=== PATIENT | male | born 2000 | race African-American/Black ===

== ENCOUNTER → 2021-08-03 14:28 | Outpatient (CLI) | payer OTHER, SELFPAY ==
--- NOTE | 2021-08-03 14:40 | RAD_ITS ---
STUDY: X-RAY - PELVIS AND BILATERAL HIPS REASON FOR EXAM: Male, 21 years old. HIP PAIN TECHNIQUE: AP view of the pelvis.? 2 views of the right hip, and 2 views of the left hip were obtained. COMPARISON: None. FINDINGS: There is a non-specific bowel gas pattern. Normal visualized soft tissue structures. Normal bilateral iliac wings, sacroiliac joints and visualized sacrum. Normal bilateral superior and inferior pubic rami. Normal pubic symphysis. Normal bilateral ischial tuberosities. Normal visualized right femoral head. Normal right acetabulum. Normal right hip joint. Normal visualized left femoral head. Normal left acetabulum. Normal left hip joint. RAD/Hips B/L min 2 views w/ Pelvis IMPRESSION: Normal x-ray examination of the pelvis and bilateral hips. Electronically Signed: Margarito Lundy MD at 15:43 EDT , Service support ,
== END ==
LOC: RAD 14:35
PROVIDERS: Referring Provider Family Medicine; Visit Provider Family Medicine
DX: M25.559 Pain in unspecified hip (principal)
CPT/HCPCS: 73521